=== PATIENT | male | born 1970 | race Caucasian/White ===

== ENCOUNTER 2018-02-14 19:16 | Observation (INO) | payer OTHER, SELFPAY ==
[2018-02-14] VITALS (10 sets, daily range): BP systolic 156–218; BP diastolic 92–111; PULSE 62–77; RESP 16–22; TEMP 36.2–36.6; O2SAT 94–100; BMI 40.7
--- NOTE | 2018-02-14 19:19 | DI.CT.S_ITS ---
PROCEDURE: CT HEAD/BRAIN WO CON INDICATIONS: stroke symptoms TECHNIQUE: Noncontrast 4.5 mm thick angled axial sections acquired from the foramen magnum to the vertex, with coronal and sagittal reformats. For radiation dose reduction, the following was used: automated exposure control, adjustment of mA and/or kV according to patient size. COMPARISON: [facility], CT, HEAD WITHOUT CONTRAST, 04/04/2008, 11:01. FINDINGS: Image quality: Excellent. CSF spaces: Basal cisterns are patent. No extra-axial fluid collections. Ventricles are normal in size and shape. Brain: No midline shift. No intracranial masses or hemorrhage. Robles-white matter interface is normal. Skull and face: Calvarium and visualized facial bones are intact, without suspicious lesions. Sinuses: Visualized sinuses and mastoids are clear. IMPRESSION: No acute intracranial findings. There is high clinical suspicion for acute infarct, MRI of the brain would be helpful to further characterize findings. Dictated by: Nicole Gastelum M.D. on 02/14/2018 at 19:36 Approved by: Nicole Gastelum M.D. on 02/14/2018 at 19:39
--- NOTE | 2018-02-14 19:33 | ED.AMS ---
HPI - Altered Mental Status General Chief Complaint: Altered Mental Status Stated Complaint: thinks having a stroke Time Seen by Provider: 02/14/18 19:19 Source: patient and family Mode of arrival: ambulatory Limitations: no limitations History of Present Illness HPI narrative: 47-year-old nonsmoker presents with his in the chief complaint of stroke-like symptoms which started at about noon. The patient has not felt great all day but since noon or so he has been confused and felt foggy and fuzzy. He had episodes of blurred vision in his right eye only and trouble finding words earlier today. His came home from work at about 5:00 p.m. and found him sitting on the couch acting abnormal. He was quite anxious on arrival and has settled down a bit and symptoms have improved. He denies any numbness, tingling or weakness of his extremities. He denies any recent illness such as fever, chills or head injury. He does not take blood thinners or any blood pressure medications. He is activated as a code stroke and taken directly to CT. MD complaint: altered mental status and confusion Onset (ago): hour(s) Timing confirmed by: spouse Severity: moderate Consistency of symptoms: waxing and waning Associated symptoms: loss of appetite, malaise and weakness Related Data Previous Rx's Medication Instructions Recorded sulfamethoxazole-trimethoprim 1 tab PO BID #20 tab 11/17/16 Allergies Allergy/AdvReac Type Severity Reaction Status Date / Time Irbesartan Allergy Mild HIVES, Uncoded 07/06/17 12:11 SWELLING Review of Systems Review of Systems All systems reviewed & are unremarkable except as noted in HPI and below Constitutional Denies chills, Denies fever(s), Denies lethargy and Denies weakness Eyes Denies change in vision, Denies eye discharge, Denies irritation and Reports loss of vision ENT Ears, Nose, Mouth, and Throat: Denies change in voice, Denies neck pain and Denies sore throat Cardiovascular Denies chest pain, Denies irregular heart rhythm, Reports lightheadedness, Denies palpitations, Denies dyspnea, Denies dyspnea on exertion and Denies orthopnea Respiratory Denies cough, Denies dyspnea, Denies dyspnea on exertion and Denies wheezing Gastrointestinal Gastrointestinal: Denies abdominal pain, Denies change in bowel habits, Denies diarrhea, Denies nausea and Denies vomiting Genitourinary Denies hematuria, Denies flank pain, Denies urinary incontinence and Denies urinary urgency Musculoskeletal Denies neck pain Integumentary/Breasts Denies pruritus, Denies erythema, Denies rash and Denies wounds Neurologic Reports confusion, Reports loss of vision and Denies weakness Psychiatric Reports anxiety, Reports confusion, Denies depression, Denies homicidal ideation and Denies suicidal ideation Endocrine Denies palpitations Hematologic/Lymphatic Denies easy bruising Allergic/Immunologic Denies wheezing Exam Narrative Exam Narrative: GENERAL: This is a well-nourished, well-developed patient, in mild distress. Obviously anxious, a bit confused and slow to respond. Obese HEAD: Atraumatic. Normocephalic. No temporal or scalp tenderness. EYES: Pupils equal round and reactive. Extraocular motions intact. No scleral icterus. No injection or drainage. ENT: Nose without bleeding, purulent drainage or septal hematoma. Throat without erythema, tonsillar hypertrophy or exudate. Uvula midline. Airway patent. NECK: Trachea midline. No JVD or lymphadenopathy. Supple, nontender, no meningeal signs. CARDIOVASCULAR: Regular rate and rhythm without murmurs, gallops, or rubs. RESPIRATORY: Clear to auscultation. Breath sounds equal bilaterally. No wheezes, rales, or rhonchi. GASTROINTESTINAL: Abdomen soft, non-tender, nondistended. No hepato-splenomegaly, or palpable masses. No guarding. EXTREMITIES: No clubbing, cyanosis, or edema. No joint tenderness, effusion, or edema noted. BACK: Nontender without deformity or crepitance. No flank tenderness. SKIN: No rash or erythema. Initial Vital Signs Initial Vital Signs: Vital Signs Temperature 97.8 F 02/14/18 19:20 Pulse Rate 77 02/14/18 19:20 Respiratory Rate 18 02/14/18 19:20 Blood Pressure 218/111 H 02/14/18 19:20 Pulse Oximetry 100 02/14/18 19:20 Scores NIH Stroke Scale Level of Conciousness: Not alert, but arousable by minor stim to obey, answer or respond Ask month/age: Answers one question correctly, intubated follow commands Open/close eyes, close hand: Performs both tasks correctly Best gaze horizontal: Normal Visual lynn: No visual loss Facial palsy: Normal symetrical movement Left arm drift: No drift for full 10 sec Right arm drift: No drift for full 10 sec Left leg drift: No drift for full 10 sec Right leg drift: No drift for full 10 sec Limb ataxia: Absent Sensory on face/arms/legs: Normal, no sensory loss Best language: No aphasia, normal Dysarthria: Normal Extinction or inattention: No abnormality Total NIH Stroke scale score: 2 Course Orders Ordered: ED Orders 02/14/18 19:19 CT head/brain wo con Stat 02/14/18 19:21 Basic Metabolic Panel Stat Complete Blood Count AUTO DIFF Stat Partial Thromboplastin Time Stat Prothrombin Time INR Stat 02/14/18 19:25 Urine Drug Screen, Rapid Stat EKG-12 Lead Stat 02/14/18 21:30 EC echo doppler complete Routine MR stroke Routine US carotid doppler BI Routine Education, smoking cessation ONGOING 02/15/18 05:00 Basic Metabolic Panel DAILY Lipid Panel DAILY Acetaminophen (Tylenol) 650 mg PO Q6HR PRN PRN Reason: As Needed for Fever/Mild Pain Aspirin (Aspirin) 325 mg PO DAILY FLY Sodium Chloride (Normal Saline 0.9%) 1,000 mls @ 150 mls/hr IV CONT FLY Last Admin: 02/14/18 19:49 Dose: 150 mls/hr Labetalol HCl (Trandate) 10 mg IV Q4HR PRN PRN Reason: Heart Rate- High Discontinued Medications Aspirin (Aspirin Chew) 324 mg PO NOW ONE Stop: 02/14/18 20:05 Last Admin: 02/14/18 20:09 Dose: 324 mg Labetalol HCl (Trandate) 10 mg IV NOW ONE Stop: 02/14/18 19:50 Last Admin: 02/14/18 19:50 Dose: 10 mg Reevaluation(s) Reevaluation #1: patient BP dropping after Labetalol. Now down to about 180s/110. Some improvement in symptoms but definitely not full resolution. Consultations Consultation #1: Dr. Campbell happy to admit given patient reported history with Dr. Cai Vital Signs - 8 hr 02/14/18 19:20 02/14/18 19:39 02/14/18 19:50 Temperature 97.8 F Pulse Rate 77 69 63 Respiratory Rate 18 22 Blood Pressure 218/111 H 179/101 H Blood Pressure [Left Arm] 176/108 H Pulse Oximetry 100 100 02/14/18 20:05 02/14/18 20:15 11/20/18 20:30 Temperature Pulse Rate 63 62 64 Respiratory Rate 16 16 16 Blood Pressure Blood Pressure [Left Arm] 169/96 H 158/92 H 163/95 H Pulse Oximetry 98 100 94 02/14/18 20:58 02/14/18 21:10 02/14/18 21:46 Temperature 97.2 F L Pulse Rate 65 66 Respiratory Rate 16 18 Blood Pressure 189/98 H 156/105 H Blood Pressure [Left Arm] Pulse Oximetry 100 97 96 MDM - Altered Mental Status Lab Data Attestation: I reviewed the patient's lab results. Result diagrams: 02/14/18 19:21 02/14/18 19:21 Lab Results 02/14/18 02/14/18 02/14/18 Range/Units 19:21 19:21 19:21 WBC 11.2 H (4.5-11.0) X10^3/uL RBC 5.24 (4.5-5.9) X10^6/uL Hgb 14.9 (13.5-17.5) g/dL Hct 44.4 (41-53) % MCV 84.7 (80-100) fL MCH 28.4 (26-34) PG MCHC 33.6 (30-36) % RDW 13.4 (11.6-14.8) % Plt Count 255 (150-400) X10^3/uL Neut % (Auto) 73.9 (50-75) % Lymph % (Auto) 15.6 L (25-40) % [place] % (Auto) 7.5 (3-14) % Eos % (Auto) 2.2 (2-4) % Baso % (Auto) 0.8 (0-2) % Neut # (Auto) 8300 H (4493-1487) /uL PT 11.4 (10.1-12.7) SECONDS INR 1.0 (0.9-1.3) APTT 31 (26.4-36.2) SECONDS Sodium 142 (137-145) mmol/L Potassium 4.0 (3.4-5.1) mmol/L Chloride 102 (98-107) mmol/L Carbon Dioxide 29 (22-32) mmol/L BUN 19 (9-20) mg/dL Creatinine 1.10 (0.66-1.25) mg/dL Estimated GFR > 60.0 (>60) mL/min BUN/Creatinine Ratio 17.3 (6-22) Glucose 105 H (70-100) mg/dL Calcium 9.2 (8.4-10.2) mg/dL Point of Care Testing Glucose POC [address] scan - head: Radiologist's impression: [address] [address] [address] Scan Report Signed Patient: Alexei Cruz JMR#: [id number] : 1970Acct:[id number] Age/Sex: 47 / MDate of Service: 02/14/18 Loc: ED Accession Number: [id number] Procedure: CT head/brain wo con Ordering Provider: Javier Peng D.O. PROCEDURE: CT HEAD/BRAIN WO CON INDICATIONS: stroke symptoms TECHNIQUE: Noncontrast 4.5 mm thick angled axial sections acquired from the foramen magnum to the vertex, with coronal and sagittal reformats. For radiation dose reduction, the following was used: automated exposure control, adjustment of mA and/or kV according to patient size. COMPARISON: [facility], CT, HEAD WITHOUT CONTRAST, 04/04/2008, 11:01. FINDINGS: Image quality: Excellent. CSF spaces: Basal cisterns are patent. No extra-axial fluid collections. Ventricles are normal in size and shape. Brain: No midline shift. No intracranial masses or hemorrhage. Robles-white matter interface is normal. Skull and face: Calvarium and visualized facial bones are intact, without suspicious lesions. Sinuses: Visualized sinuses and mastoids are clear. IMPRESSION: No acute intracranial findings. There is high clinical suspicion for acute infarct, MRI of the brain would be helpful to further characterize findings. Dictated by: Nicole Gastelum M.D. on 02/14/2018 at 19:36 Approved by: Nicole Gastelum M.D. on 02/14/2018 at 19:39 ECG Data Attestation: I personally reviewed and interpreted this ECG as follows: Prior ECG tracings: not available for review Interpretation: EKG is normal sinus rhythm and free of any signs of ischemia or ectopy. Heart rate 71. No ST segmental elevation or depression. No T-wave inversions MDM Narrative Medical decision making narrative: patient presents as code stroke with confusion, fuzziness, vision trouble which improves with HTN control, but does not resolve. Patient never in TPA window. Stroke considered, but not classic symptoms. HTN crisis considered most likely diagnosis, but fact that symptoms did not completely resolve with improved pressures makes TIA a strong possibility. Patient will require admission to hospital to further elucidate etiology of symptoms Discharge Plan Departure Patient Disposition: Admitted as Observation Clinical Impression: Brain TIA, Hypertensive urgency Discharge Date/Time: 02/14/18 21:00 Interventions: ED Discharge Assessment Last Done: 02/14/18 20:58 Admit Date/Time: 02/14/18 20:40 Admit Provider: Alma Campbell
--- NOTE | 2018-02-14 19:40 | ED_ITS ---
HPI - Altered Mental Status General Chief Complaint: Altered Mental Status Stated Complaint: thinks having a stroke Time Seen by Provider: 02/14/18 19:19 Source: patient and family Mode of arrival: ambulatory Limitations: no limitations History of Present Illness HPI narrative: 47-year-old nonsmoker presents with his in the chief complaint of stroke-like symptoms which started at about noon. The patient has not felt great all day but since noon or so he has been confused and felt foggy and fuzzy. He had episodes of blurred vision in his right eye only and trouble finding words earlier today. His came home from work at about 5:00 p.m. and found him sitting on the couch acting abnormal. He was quite anxious on arrival and has settled down a bit and symptoms have improved. He denies any numbness, tingling or weakness of his extremities. He denies any recent illness such as fever, chills or head injury. He does not take blood thinners or any blood pressure medications. He is activated as a code stroke and taken directly to CT. MD complaint: altered mental status and confusion Onset (ago): hour(s) Timing confirmed by: spouse Severity: moderate Consistency of symptoms: waxing and waning Associated symptoms: loss of appetite, malaise and weakness Related Data Previous Rx's Medication Instructions Recorded sulfamethoxazole-trimethoprim 1 tab PO BID #20 tab 11/17/16 Allergies Allergy/AdvReac Type Severity Reaction Status Date / Time Irbesartan Allergy Mild HIVES, Uncoded 07/06/17 12:11 SWELLING Review of Systems Review of Systems All systems reviewed & are unremarkable except as noted in HPI and below Constitutional Denies chills, Denies fever(s), Denies lethargy and Denies weakness Eyes Denies change in vision, Denies eye discharge, Denies irritation and Reports loss of vision ENT Ears, Nose, Mouth, and Throat: Denies change in voice, Denies neck pain and Denies sore throat Cardiovascular Denies chest pain, Denies irregular heart rhythm, Reports lightheadedness, Denies palpitations, Denies dyspnea, Denies dyspnea on exertion and Denies orthopnea Respiratory Denies cough, Denies dyspnea, Denies dyspnea on exertion and Denies wheezing Gastrointestinal Gastrointestinal: Denies abdominal pain, Denies change in bowel habits, Denies diarrhea, Denies nausea and Denies vomiting Genitourinary Denies hematuria, Denies flank pain, Denies urinary incontinence and Denies urinary urgency Musculoskeletal Denies neck pain Integumentary/Breasts Denies pruritus, Denies erythema, Denies rash and Denies wounds Neurologic Reports confusion, Reports loss of vision and Denies weakness Psychiatric Reports anxiety, Reports confusion, Denies depression, Denies homicidal ideation and Denies suicidal ideation Endocrine Denies palpitations Hematologic/Lymphatic Denies easy bruising Allergic/Immunologic Denies wheezing Exam Narrative Exam Narrative: GENERAL: This is a well-nourished, well-developed patient, in mild distress. Obviously anxious, a bit confused and slow to respond. Obese HEAD: Atraumatic. Normocephalic. No temporal or scalp tenderness. EYES: Pupils equal round and reactive. Extraocular motions intact. No scleral icterus. No injection or drainage. ENT: Nose without bleeding, purulent drainage or septal hematoma. Throat without erythema, tonsillar hypertrophy or exudate. Uvula midline. Airway patent. NECK: Trachea midline. No JVD or lymphadenopathy. Supple, nontender, no meningeal signs. CARDIOVASCULAR: Regular rate and rhythm without murmurs, gallops, or rubs. RESPIRATORY: Clear to auscultation. Breath sounds equal bilaterally. No wheezes , rales, or rhonchi. GASTROINTESTINAL: Abdomen soft, non-tender, nondistended. No hepato-splenomegaly , or palpable masses. No guarding. EXTREMITIES: No clubbing, cyanosis, or edema. No joint tenderness, effusion, or edema noted. BACK: Nontender without deformity or crepitance. No flank tenderness. SKIN: No rash or erythema. Initial Vital Signs Initial Vital Signs: Vital Signs Temperature 97.8 F 02/14/18 19:20 Pulse Rate 77 02/14/18 19:20 Respiratory Rate 18 02/14/18 19:20 Blood Pressure 218/111 H 02/14/18 19:20 Pulse Oximetry 100 02/14/18 19:20 Scores NIH Stroke Scale Level of Conciousness: Not alert, but arousable by minor stim to obey, answer or respond Ask month/age: Answers one question correctly, intubated follow commands Open/close eyes, close hand: Performs both tasks correctly Best gaze horizontal: Normal Visual lynn: No visual loss Facial palsy: Normal symetrical movement Left arm drift: No drift for full 10 sec Right arm drift: No drift for full 10 sec Left leg drift: No drift for full 10 sec Right leg drift: No drift for full 10 sec Limb ataxia: Absent Sensory on face/arms/legs: Normal, no sensory loss Best language: No aphasia, normal Dysarthria: Normal Extinction or inattention: No abnormality Total NIH Stroke scale score: 2 Course Orders Ordered: ED Orders 02/14/18 19:19 CT head/brain wo con Stat 02/14/18 19:21 Basic Metabolic Panel Stat Complete Blood Count AUTO DIFF Stat Partial Thromboplastin Time Stat Prothrombin Time INR Stat 02/14/18 19:25 Urine Drug Screen, Rapid Stat EKG-12 Lead Stat 02/14/18 21:30 EC echo doppler complete Routine MR stroke Routine US carotid doppler BI Routine Education, smoking cessation ONGOING 02/15/18 05:00 Basic Metabolic Panel DAILY Lipid Panel DAILY Acetaminophen (Tylenol) 650 mg PO Q6HR PRN PRN Reason: As Needed for Fever/Mild Pain Aspirin (Aspirin) 325 mg PO DAILY FLY Sodium Chloride (Normal Saline 0.9%) 1,000 mls @ 150 mls/hr IV CONT FLY Last Admin: 02/14/18 19:49 Dose: 150 mls/hr Labetalol HCl (Trandate) 10 mg IV Q4HR PRN PRN Reason: Heart Rate- High Discontinued Medications Aspirin (Aspirin Chew) 324 mg PO NOW ONE Stop: 02/14/18 20:05 Last Admin: 02/14/18 20:09 Dose: 324 mg Labetalol HCl (Trandate) 10 mg IV NOW ONE Stop: 02/14/18 19:50 Last Admin: 02/14/18 19:50 Dose: 10 mg Reevaluation(s) Reevaluation #1: patient BP dropping after Labetalol. Now down to about 180s/ 110. Some improvement in symptoms but definitely not full resolution. Consultations Consultation #1: Dr. Campbell happy to admit given patient reported history with Dr. Cai Vital Signs - 8 hr 02/14/18 19:20 02/14/18 19:39 02/14/18 19:50 Temperature 97.8 F Pulse Rate 77 69 63 Respiratory Rate 18 22 Blood Pressure 218/111 H 179/101 H Blood Pressure [Left Arm] 176/108 H Pulse Oximetry 100 100 02/14/18 20:05 02/14/18 20:15 11/20/18 20:30 Temperature Pulse Rate 63 62 64 Respiratory Rate 16 16 16 Blood Pressure Blood Pressure [Left Arm] 169/96 H 158/92 H 163/95 H Pulse Oximetry 98 100 94 02/14/18 20:58 02/14/18 21:10 02/14/18 21:46 Temperature 97.2 F L Pulse Rate 65 66 Respiratory Rate 16 18 Blood Pressure 189/98 H 156/105 H Blood Pressure [Left Arm] Pulse Oximetry 100 97 96 MDM - Altered Mental Status Lab Data Attestation: I reviewed the patient's lab results. Result diagrams: 02/14/18 19:21 02/14/18 19:21 Lab Results 02/14/18 02/14/18 02/14/18 Range/Units 19:21 19:21 19:21 WBC 11.2 H (4.5-11.0) X10^3/uL RBC 5.24 (4.5-5.9) X10^6/uL Hgb 14.9 (13.5-17.5) g/dL Hct 44.4 (41-53) % MCV 84.7 (80-100) fL MCH 28.4 (26-34) PG MCHC 33.6 (30-36) % RDW 13.4 (11.6-14.8) % Plt Count 255 (150-400) X10^3/uL Neut % (Auto) 73.9 (50-75) % Lymph % (Auto) 15.6 L (25-40) % [place] % (Auto) 7.5 (3-14) % Eos % (Auto) 2.2 (2-4) % Baso % (Auto) 0.8 (0-2) % Neut # (Auto) 8300 H (8860-1184) /uL PT 11.4 (10.1-12.7) SECONDS INR 1.0 (0.9-1.3) APTT 31 (26.4-36.2) SECONDS Sodium 142 (137-145) mmol/L Potassium 4.0 (3.4-5.1) mmol/L Chloride 102 (98-107) mmol/L Carbon Dioxide 29 (22-32) mmol/L BUN 19 (9-20) mg/dL Creatinine 1.10 (0.66-1.25) mg/dL Estimated GFR > 60.0 (>60) mL/min BUN/Creatinine Ratio 17.3 (6-22) Glucose 105 H (70-100) mg/dL Calcium 9.2 (8.4-10.2) mg/dL Point of Care Testing Glucose POC [address] scan - head: Radiologist's impression: [address] [address] [address] Scan Report Signed Patient: Alexei Cruz JMR#: [id number] : 1970Acct:[id number] Age/Sex: 47 / MDate of Service: 02/14/18 Loc: ED Accession Number: [id number] Procedure: CT head/brain wo con Ordering Provider: Javier Peng D.O. PROCEDURE: CT HEAD/BRAIN WO CON INDICATIONS: stroke symptoms TECHNIQUE: Noncontrast 4.5 mm thick angled axial sections acquired from the foramen magnum to the vertex, with coronal and sagittal reformats. For radiation dose reduction, the following was used: automated exposure control, adjustment of mA and/or kV according to patient size. COMPARISON: [facility], CT, HEAD WITHOUT CONTRAST, 04/04/2008, 11:01. FINDINGS: Image quality: Excellent. CSF spaces: Basal cisterns are patent. No extra-axial fluid collections. Ventricles are normal in size and shape. Brain: No midline shift. No intracranial masses or hemorrhage. Robles-white matter interface is normal. Skull and face: Calvarium and visualized facial bones are intact, without suspicious lesions. Sinuses: Visualized sinuses and mastoids are clear. IMPRESSION: No acute intracranial findings. There is high clinical suspicion for acute infarct, MRI of the brain would be helpful to further characterize findings. Dictated by: Nicole Gastelum M.D. on 02/14/2018 at 19:36 Approved by: Nicole Gastelum M.D. on 02/14/2018 at 19:39 ECG Data Attestation: I personally reviewed and interpreted this ECG as follows: Prior ECG tracings: not available for review Interpretation: EKG is normal sinus rhythm and free of any signs of ischemia or ectopy. Heart rate 71. No ST segmental elevation or depression. No T-wave inversions MDM Narrative Medical decision making narrative: patient presents as code stroke with confusion, fuzziness, vision trouble which improves with HTN control, but does not resolve. Patient never in TPA window. Stroke considered, but not classic symptoms. HTN crisis considered most likely diagnosis, but fact that symptoms did not completely resolve with improved pressures makes TIA a strong possibility. Patient will require admission to hospital to further elucidate etiology of symptoms Discharge Plan Departure Patient Disposition: Admitted as Observation Clinical Impression: Brain TIA, Hypertensive urgency Discharge Date/Time: 02/14/18 21:00 Interventions: ED Discharge Assessment Last Done: 02/14/18 20:58 Admit Date/Time: 02/14/18 20:40 Admit Provider: Alma Campbell
[2018-02-14 19:45] LABS: Prothrombin Time 11.4 SECONDS (10.1-12.7)
[2018-02-14 19:47] LABS: PTT Partial Thromboplastin Tim 31 SECONDS (26.4-36.2)
[2018-02-14 19:48] LABS: BUN Creatinine Ratio 17.3 (6-22); Blood Urea Nitrogen 19 mg/dL (9-20); Calcium 9.2 mg/dL (8.4-10.2); Carbon Dioxide 29 mmol/L (22-32); Chloride 102 mmol/L (98-107); Estimated Glomerular Filt Rate > 60.0 mL/min (>60); Glucose 105 mg/dL (70-100); HEMOLYSIS < 15 (0-50); Sodium 142 mmol/L (137-145)
[2018-02-14] MEDS: SODIUM CHLORIDE 0.9% 1,000 ML 150 ML IV (19:49)
[2018-02-14] MEDS: LABETALOL 20 MG/4 ML SYRINGE 10 MG IV (19:50)
--- NOTE | 2018-02-14 19:55 | PC.NURSE ---
Patient reports sitting at his desk around 1330/1400 sudden onset of right sided blurry vision, pins/needles on right side of face. Took a nap woke up around 1630 feeling disoriented and having difficulty formulating a thought. Arrives to ER appears anxious I am freaking out, am I having a stroke patient is repetitive in questions and statements.
[2018-02-14 20:01] LABS: Add Manual Diff / Slide Review NO; Basophils Percent Auto 0.8 % (0-2); Eosinophils Percent Auto 2.2 % (2-4); Hematocrit 44.4 % (41-53); Hemoglobin 14.9 g/dL (13.5-17.5); Lymphocytes Percent Auto 15.6 % (25-40); Mean Corpuscular HGB Conc 33.6 % (30-36); Mean Corpuscular Hemoglobin 28.4 PG (26-34); Mean Corpuscular Volume 84.7 fL (80-100); Monocytes Percent Auto 7.5 % (3-14); Neutrophils Absolute Auto 8300 /uL (3000-5900); Neutrophils Percent Auto 73.9 % (50-75); Platelet Count 255 X10^3/uL (150-400); Red Blood Cell Count 5.24 X10^6/uL (4.5-5.9); Red Cell Distribution Width 13.4 % (11.6-14.8); White Blood Cell Count 11.2 X10^3/uL (4.5-11.0)
[2018-02-14] MEDS: ASPIRIN 81 MG TAB 324 MG PO (20:09)
--- NOTE | 2018-02-14 21:30 | DI.ECHO.S_ITS ---
[facility] +---------+ : : [address] : : [address] : : : : [place], : : : : [place] [id number] : : : : Phone: [phone] + [id number] Echocardiogram Report + + :Name: SAVITA FRANKS Study Date: 02/15/2018 Height: 68 in : :[facility] Weight: 274 lb: : Gender: Male BSA: 2.3 m2 : :: 1970 Age: 47 yrs : :Reason For Study: TIA : : Performed By: Lisa Pastor : :Referring: JOSHUA RAMSEY : + + Interpretation Summary The patient was in normal sinus rhythm during the exam. The left ventricle is normal in size. The ejection fraction is estimated to be 60-65%. There is no LV thrombus. The right ventricle is normal in size and function. No significant valvular pathology seen. The ascending aorta is moderately enlarged. The aortic arch is mildly enlarged. Procedure: A two-dimensional transthoracic echocardiogram with color flow and Doppler was performed. The study quality was technically adequate. There is no prior echocardiogram noted for this patient. The heart rate ranged between 61-72 bpm during the study. The patient was in normal sinus rhythm during the exam. Left Ventricle: The left ventricle is normal in size. Proximal septal thickening is noted. There is no echo evidence for significant left ventricular outflow tract obstruction. There is no thrombus. The ejection fraction is estimated to be 60-65%. There are no focal wall motion abnormalities. MV E/A: 0.94 Med Peak E' Hany: 4.9 cm/sec E/E' med: 18.6. Right Ventricle: The right ventricle is normal in size and function. Atria: Both atria are normal in size. There is no Doppler evidence for an interatrial shunt. Mitral Valve: The mitral valve is normal in structure and function. There is trace mitral regurgitation. Aortic Valve: The aortic valve is not well visualized. There is no aortic valve stenosis. No aortic regurgitation is present. Tricuspid Valve: The tricuspid valve is not well visualized, but is grossly normal. Pulmonary artery pressures cannot be estimated because of the lack of a measurable TR jet velocity. There is trace tricuspid regurgitation. Pulmonic Valve: The pulmonic valve is not well seen, but is grossly normal. There is a trace or physiologic amount of pulmonic regurgitation. Great Vessels: The aortic root is normal size. The ascending aorta is moderately enlarged. The aortic arch is mildly enlarged. The pulmonary artery is normal size. The IVC is dilated (diameter is greater than 2.1 cm) yet it collapses greater than 50% with a sniff. This suggests a right atrial pressure of 8 mm Hg. Pericardium/ Pleura There is no pericardial effusion. There is an anterior echo-free space consistent with a fat pad. There is no pleural effusion. MMode/2D Measurements & Calculations LVIDd: 4.5 cm LVOT diam: 2.3 cm LVIDs: 2.6 cm Ao root diam: 3.4 cm IVSd: 1.2 cm asc Aorta Diam: 4.4 cm LVPWd: 1.1 cm Ao Arch Diam (Prox Trans): 3.6 cm LV monique. diameter/BSA (cm/m^2): 1.9 LV sys. diameter/BSA (cm/m^2): 1.1 FS: 42.5 % LA A2 area: 19.9 cm2 RA long axis: 4.7 cm LA A4 area: 22.9 cm2 RA area: 11.5 cm2 LA length (vol): 5.8 cm RA vol: 23.7 ml LA vol: 67.1 ml RA : 10.1 ml/m2 LA vol index: 28.7 ml/m2 RVD1 (basal): 2.9 cm IVC diam: 2.3 cm TAPSE: 2.8 cm Doppler Measurements & Calculations Ao V2 max: 157.6 cm/sec LVOT Max Hany: 125.6 cm/sec Ao V2 mean: 109.6 cm/sec LV V1 max P.3 mmHg Ao V2 VTI: 33.4 cm LV V1 VTI: 30.8 cm Ao max P.9 mmHg Ao mean P.4 mmHg XIAO(I,D): 4.0 cm2 MV E max hany: 92.2 cm/sec XIAO(V,D): 3.5 cm2 MV A max hany: 98.5 cm/sec XIAO indexed to BSA (cm^2/m^2): 1.7 MV E/A: 0.94 sev ratio: 0.92 Med Peak E' Hany: 4.9 cm/sec E/E' med: 18.6 Lat Peak E' Hany: 4.9 cm/sec E/E' lat: 18.6 E/e' average: 18.6 MV dec time: 0.25 sec Reading Physician:ISH
--- NOTE | 2018-02-14 21:30 | DI.MRI.S_ITS ---
PROCEDURE: MR STROKE Pre- and post-contrast brain MRI, non-contrast brain MR angiogram, pre- and postcontrast neck MR angiogram INDICATIONS: TIA TECHNIQUE: Brain: Noncontrast axial T1 spin echo, axial T2 fast spin echo, sagittal and axial FLAIR, coronal T2 fast spin echo, axial gradient echo, axial diffusion and ADC through the brain. After the administration of contrast, axial 3D VIBE of the cranial vasculature and brain. Brain MRA: Non-contrast 3-D time of flight MR angiogram, with multiple cbsismw-qatpvyzwo-wbhnnvlhry (MIP) reformats performed. Neck MRA: Axial and sagittal TruFISP through the neck. Coronal dynamic MR angiogram during administration of contrast in the arterial and venous phases, with 3-dimenstional kzoxefz-bkgzwflkr-hxnzwvhrjr (MIP) reformats constructed from subtraction images. COMPARISON: None. FINDINGS: Image quality: Excellent. BRAIN: CSF spaces: Ventricles are normal in size and shape. Basal cisterns are patent. No extra-axial fluid collections. Brain: No intracranial bleeds or mass effects. There are scattered white matter signal changes most prominently involving the left aspect of the splenium adjacent to the occipital horn on image 13 series 16. There additional periventricular white matter signal changes in this region. No definite associated enhancement identified on post contrast pulse sequences suggesting nonacute age. Robles-white matter interface is normal. Diffusion weighted images show no acute ischemic insults. There is T2 hyperintensity seen on image 66 series 25 in the region of the right periventricular white matter, as well as the periventricular white matter adjacent to the left occipital horn, however this probably T2 shine through artifact given the appearance of ADC map. Brainstem appears normal. Normal intravascular flow voids are present. No abnormal intracranial enhancement. Skull and face: Calvarial marrow signal is normal. Orbits appear normal. Sinuses: Mild bilateral maxillary sinus disease. The mastoids are clear. BRAIN MR ANGIOGRAM: Anterior circulation: Intracranial internal carotid arteries are normal in size and enhancement. The flow within the paired anterior cerebral arteries is normal and symmetric. The flow within the middle cerebral arteries is normal and symmetric. The anterior communicating artery is seen. No stenoses, occlusions, or aneurysms. Posterior circulation: The visualized portions of the vertebral arteries demonstrate normal caliber, and join to form a incidentally noted fenestrated basilar artery. 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 NECK MR ANGIOGRAM: Carotids: Great vessels demonstrate a conventional anatomy as they arise from the aortic arch. The origins of the common carotid arteries appear patent. The calibers and courses of both common carotid arteries are normal. The bifurcation regions appear normal bilaterally. The internal carotid arteries demonstrate normal course and caliber. Posterior circulation: The origins of the vertebral arteries appear patent. More superior portions of both vertebral arteries demonstrate normal course and caliber. Incidentally noted fenestrated appearance of the basilar artery. Miscellaneous: Subclavian arteries appear patent. Pre-contrast images through the neck show no soft tissue abnormalities. IMPRESSION: BRAIN MRI: No evidence of acute ischemia. Diffuse white matter signal changes most prominent at the left aspect of the corpus callosum splenium, raising the possibility of demyelination (versus chronic microvascular ischemic disease, or other inflammatory or neurodegenerative etiology). No associated enhancement suggests that these are nonacute. Recommend clinical correlation. 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 NECK MR ANGIOGRAM: No ICA stenosis. Dictated by: Usama Villalta M.D. on 02/15/2018 at 11:52 Approved by: Usama Villalta M.D. on 02/15/2018 at 12:08
[2018-02-15] VITALS (11 sets, daily range): BP systolic 146–184; BP diastolic 78–116; PULSE 58–67; RESP 16–22; TEMP 36.4–36.9; O2SAT 94–100
[2018-02-15] MEDS: LABETALOL 20 MG/4 ML SYRINGE 10 MG IV (06:56)
--- NOTE | 2018-02-15 07:01 | PM.HP.1 ---
History of Present Illness Date Patient Seen: 02/15/18 Time Patient Seen: 08:20 Chief complaint: thinks having a stroke Narrative: 47-year-old morbidly obese male whom I have seen a handful of times over 10 years (usually only for acute care issues) who presented to the [facility] Emergency Department with symptoms possibly consistent with a stroke. Symptoms apparently began in early afternoon day of admission. He felt ?confused?, ?foggy and fuzzy?. He also reports episodes of difficulty finding words and perhaps some blurred vision. His spouse came home from work in the early evening found him sitting on the couch acting abnormally and strangely and he was extremely anxious apparently. Many of his symptoms seemed to wax and wane and/or common go over the course of the see describes a just a few seconds less than a minute. Upon arrival in the ED a code stroke was called and he was evaluated urgently. Other than severe hypertension no specific findings in his ER evaluation Past medical history is fairly benign other than his obesity and sleep apnea. On no chronic prescription medications. Has not received any regular medical care as above. Patient History Medical History Sleep apnea in adult (Chronic) Obesity, morbid, BMI 40.0-49.9 (Chronic) Hypertension (Chronic) Family & Social History Family History: Reviewed 02/15/18 by Ernesto Cai MD Social History: household members spouse Prior Living Arrangements House Safety & Behavioral: Feels Safe in Current Yes Environment Been Physically Hurt or No Threatened By a Person Suicidal Ideation Description None Suicide Plan Description No Plan Tobacco & Substance use: Smoking Status Former smoker alcohol intake frequency a few times a week Substance Use Type does not use Meds Allergies Allergy/AdvReac Type Severity Reaction Status Date / Time Irbesartan Allergy Mild HIVES, Uncoded 07/06/17 12:11 SWELLING Review of Systems Constitutional Constitutional: Denies fever(s), Denies headache(s), Denies malaise and Denies weakness Eyes Eyes: Denies double vision, Denies irritation, Denies loss of vision and Denies other visual disturbances ENT Ears, Nose, Mouth, and Throat: No headache(s) Cardiovascular Cardiovascular: Denies irregular heart rhythm, Denies radiating jaw, neck or arm pain, Denies rapid, pounding, or irregular heartbeat, Denies shortness of breath and Denies shortness of breath with activity Respiratory Respiratory: Denies dyspnea, Denies dyspnea on exertion and Denies wheezing Gastrointestinal Gastrointestinal: Denies change in bowel habits and Denies nausea Genitourinary Genitourinary: Denies urinary urgency Musculoskeletal Musculoskeletal: Denies myalgias, Denies joint swelling, Denies numbness and Denies tingling Integumentary/Breasts Skin/Breast: Denies lesions, Denies new lesions, Denies rash and Denies sores Neurologic Neurologic: Denies headache(s), Denies loss of vision, Denies memory loss, Denies numbness, Denies tingling and Denies weakness Psychiatric Psychiatric: Denies memory loss Endocrine Endocrine: Denies palpitations Hematologic/Lymphatic Hematologic/Lymphatic: Denies lymphadenopathy Allergic/Immunologic Allergic/Immunologic: Denies wheezing Exam Vital Signs (past 8 hours): - 02/15/18 01:20 02/15/18 06:20 02/15/18 06:50 Temperature 97.5 F L 97.5 F L Pulse Rate 60 Respiratory Rate 19 22 Blood Pressure 155/98 H 184/116 H Pulse Oximetry 98 100 02/15/18 06:56 Temperature Pulse Rate 64 Respiratory Rate Blood Pressure 184/116 H Pulse Oximetry Oxygen Delivery Method Room Air Const General: cooperative, healthy appearing, comfortable, well developed and well groomed Nutritional Appearance: well nourished Orientation: alert, awake and oriented x3 HENMT Head: normocephalic, atraumatic, No cyanosis of lips/distal nose, No raccoon eyes and No periorbital ecchymosis Ears: hearing grossly normal bilaterally and external ears normal Nose: external nose normal and nares normal Face and sinus: normal facial exam and face symmetric Mouth: oral mucosae normal, lip normal and tongue normal Eyes Alignment and Position: alignment normal Periorbital: periorbital findings normal Eyelids: eyelids normal Conjunctivae: conjunctivae normal Sclera: sclerae normal Cornea: corneas normal Pupils: PERRL EOM: EOM intact bilaterally Neck Neck: normal visual inspection, full ROM, trachea midline and No anterior neck swelling Thyroid: not diffusely enlarged Carotids: normal carotid upstroke Lymphatic: No lymphadenopathy Chest Chest: normal inspection of the chest, No crepitus and No tenderness Breast inspection: normal inspection of the breasts Resp Effort & Inspection: normal respiratory effort, able to speak in complete sentences, no audible wheezes, no cough, no retractions and not tachypneic Auscultation: clear to auscultation bilaterally, no rales, no rhonchi, no wheezes and no rubs Percussion: percussion normal Tactile Fremitus: tactile fremitus absent Cardio Palpation: normal PMI Rate: regular rate Rhythm: regular rhythm Heart Sounds: S1 normal, S2 normal and normal, physiologic split S2 Bruits: no carotid bruits Pulses: brachial pulses present and radial pulses present GI Inspection: normal to inspection Palpation: soft and no hepatosplenomegaly Percussion: normal to percussion Auscultation: normal bowel sounds Back/Spine/Pelvis Back: No CVA tenderness Cervical Spine: normal cervical lordosis Thoracic/Lumbar Spine: thoracic and lumbar spine normal to inspection Skin General: no rashes or lesions noted, No excoriations, No induration, No jaundice, No mottling and No petechiae Lesions: no lesions (no worrisome/abl lesions) Rashes: no rashes Trauma: no lacerations or abrasions Wounds: no wounds Hair: normal Neuro General: alert, awake, oriented x3, tone normal and normal light touch, pain and propioception Cranial Nerves: CN's II-XI intact bilaterally Cognition: normal cognition Speech: speech normal Motor: muscle tone normal throughout Sensory Exam: no sensory deficits noted DTR's: Rt Biceps: 2+, Lt Biceps: 2+, Rt Brachioradialis: 2+, Lt Brachioradialis: 2+, Rt Patellar: 2+ and Lt Patellar: 2+ Extrem General: normal to inspection, no clubbing, cyanosis or edema and No calf tenderness Right upper extremity: normal to inspection Left upper extremity: normal to inspection Right lower extremity: normal to inspection Left lower extremity: normal to inspection Psych Appearance: grossly normal Mental Status: mental status grossly normal Speech and Movement: speech and movement normal and speech clear Mood: congruent mood Affect: normal affect Attitude: cooperative Thought Process: normal Thought Content: normal Judgment: judgment good Objective Imaging CT scan - head: Radiologist's impression: IMPRESSION: No acute intracranial findings. There is high clinical suspicion for acute infarct, MRI of the brain would be helpful to further characterize findings. EC lead ECG is sinus rhythm with only abnormality being poor R-wave progression across the precordium, no prior study was available in the system to compare Labs Result Diagrams: 02/14/18 19:21 02/15/18 05:00 Labs: Laboratory Results - last 24 hr 02/14/1818 02/14/18 19:21 19:21 19:21 WBC 11.2 H RBC 5.24 Hgb 14.9 Hct 44.4 MCV 84.7 MCH 28.4 MCHC 33.6 RDW 13.4 Plt Count 255 Neut % (Auto) 73.9 Lymph % (Auto) 15.6 L [place] % (Auto) 7.5 Eos % (Auto) 2.2 Baso % (Auto) 0.8 Neut # (Auto) 8300 H PT 11.4 INR 1.0 APTT 31 Sodium 142 Potassium 4.0 Chloride 102 Carbon Dioxide 29 BUN 19 Creatinine 1.10 Estimated GFR > 60.0 BUN/Creatinine Ratio 17.3 Glucose 105 H Calcium 9.2 Assessment & Plan Plan: Assessment/Plan Narrative: 1. Altered mental status/metabolic encephalopathy of unclear etiology-this certainly could be a hypertensive emergency, and as such we I think should control his blood pressure carefully. 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 His symptoms seem to went on and off at far to greater frequency for me to really think this was vascular mediated which is why think it is okay to control blood pressure (I do not think he has had a stroke). However MRI of the brain is certainly an entirely appropriate and will obtain that today. Evaluating his other vasculature including carotids and hopefully an echocardiogram would be appropriate as well. He would I think at this point until we know more or his history is better clinically defined he should probably benefit from an aspirin today as well. I am not calling this a stroke noted why think this is a stroke so I do not think skilled therapy evaluation such as physical therapy etc would be appropriate. 2. Morbid obesity-patient reports he has been working on weight loss through weight watchers and has had some success. He is encouraged to continue this in congratulated on his success today. 3. DVT prophylaxis-continue with sequential compression devices while patient is in bed. Patient will be up and around actively, but if that changes he would be a candidate for Lovenox. Quality VTE Deep Vein Thrombosis/Pulmonary Embolism Present on Admission: No
[2018-02-15 07:07] LABS: Blood Urea Nitrogen 19 mg/dL (9-20); Calcium 8.6 mg/dL (8.4-10.2); Carbon Dioxide 28 mmol/L (22-32); Chloride 106 mmol/L (98-107); Cholesterol 174 mg/dL (140-199); Estimated Glomerular Filt Rate > 60.0 mL/min (>60); Glucose 102 mg/dL (70-100); HDL Cholesterol 37 mg/dL (40-60); HEMOLYSIS < 15 (0-50); LDL Cholesterol Calculated 113 mg/dL (<100); Potassium 4.3 mmol/L (3.4-5.1); Sodium 144 mmol/L (137-145); Triglycerides 122 mg/dL (35-150)
[2018-02-15 07:34] LABS: Urine Amphetamines Negative (Negative); Urine Cocaine Negative (Negative); Urine Methamphetamines Negative (Negative); Urine Morphine/Opi cutoff 2000 Negative (Negative); Urine Tetrahydrocannabinol Negative (Negative)
[2018-02-15 07:35] LABS: Urine Barbiturates Negative (Negative); Urine Benzodiazepines Negative (Negative); Urine MDMA Negative (Negative); Urine Methadone Negative (Negative); Urine Oxycodone Negative (Negative); Urine Phencyclidine Negative (Negative); Urine Tricyclic Antidepressant Negative (Negative)
[2018-02-15] MEDS: LISINOPRIL 20 MG TABLET PO (09:25)
[2018-02-15] MEDS: ASPIRIN EC 325 MG TABLET PO (09:26)
--- NOTE | 2018-02-15 10:25 | PC.NURSE ---
Addendum entered by Roya Childers R.N. 02/15/18 11:35: Pt returned to floor 1130am, Per [employer] tech, Pt had an episode of dizziness after activity to BR. Resolved with rest. blood bank laboratory technician met Pt in room and will begin study Original Note: Am shift Pt is cooperative, sitting in chair, denies pain to chest or confusion, although Pt is noted to be forgetful. Catching himself, Oh you have been in here this morning, I remember now A/ox3, at bedside. Dr Cai into see Pt, MRI of brain scheduled for later this Am, IV SL. Pt denies further needs. Off floor to MRI @ 1030.
--- NOTE | 2018-02-15 11:25 | DI.US.S_ITS ---
PROCEDURE: US CAROTID DOPPLER BI INDICATIONS: TIA TECHNIQUE: Color and pulse Doppler interrogation was performed of both carotid systems, with image documentation and velocity measurements. COMPARISON: None. FINDINGS: Stenosis calculations are based on SRU (Society of Radiologists in Ultrasound) criteria. Right side: Brachial blood pressure: IV in place. Common carotid artery peak systolic velocity: 62 cm/sec. Internal carotid artery peak systolic velocity: 62 cm/sec. Internal carotid artery end diastolic velocity: 19 cm/sec. External carotid artery peak systolic velocity: 111 cm/sec. ICA/CCA peak systolic ratio: 1.0. Robles scale imaging description: No plaque Percent internal carotid artery stenosis: None. Vertebral artery: Flow direction is antegrade. Left side: Brachial blood pressure: 146/88 mm Hg. Common carotid artery peak systolic velocity: 62 cm/sec. Internal carotid artery peak systolic velocity: 51 cm/sec. Internal carotid artery end diastolic velocity: 17 cm/sec. External carotid artery peak systolic velocity: 78 cm/sec. ICA/CCA peak systolic ratio: 0.82. Robles scale imaging description: No plaque Percent internal carotid artery stenosis: None. Vertebral artery: Flow direction is antegrade. IMPRESSION: No evidence of focal ICA stenosis. Hypertension at the time of the exam Dictated by: Usama Villalta M.D. on 02/15/2018 at 15:38 Approved by: Usama Villalta M.D. on 02/15/2018 at 15:40
--- NOTE | 2018-02-15 15:50 | CM.DANOTE ---
Addendum entered by Maria Luisa Oneill LPN 02/15/18 15:58: Pt is found up, dressed and sitting on window seat with his . Introduced self and role. Both stated immediately when can he go. Pt says he had the MRI today, he is very hopeful that he can go home today but has no idea if Dr. Cai is returning today. P: will follow prn. Expect pt likely will d/c home either later this evening or tomorrow..... Original Note: Discharge Planning/Care Management DCP: assessment: case received, EMR reviewed and went to room to check in with pt. CM Discharge Assessment Start: 02/15/18 15:49 Freq: Status: Active Protocol: Document 02/15/18 15:49 ITV (Rec: 02/15/18 15:50 ITV [id number]) Discharge Planning Assessment History Provided By Patient Medical Record Has Patient been admitted in last 30 No days? Prior Living Arrangements House Household Members spouse Whiteboard Updated in Patient Room with Yes name and ext. # of Plastic Tile Layer Review Status In Process Next Review Type Continued Stay Review
== END 2018-02-15 19:52 | disposition home or self-care (01) ==
LOC: ED 20:05 → AC 20:42
PROVIDERS: Admitting Provider Family Medicine; Emergency Provider Emergency Medicine; Family Provider Internal Medicine; PCP Internal Medicine; Visit Provider Internal Medicine
DX: G93.41 Metabolic encephalopathy (principal); R41.82 Altered mental status, unspecified; G47.33 Obstructive sleep apnea (adult) (pediatric); E66.9 Obesity, unspecified; I10 Essential (primary) hypertension; Z68.41 Body mass index [BMI] 40.0-44.9, adult; Z87.891 Personal history of nicotine dependence
CPT/HCPCS: 36415; 36591; 70450; 70553; 80048; 80061; 80305; 82962; 85025; 85610; 85730; 93005; 93010; 93306; 93880; 96361; 96374; 99219; 99283; 99285; 99291; G0378; A9579

== ENCOUNTER → 2019-07-09 12:04 | Outpatient (CLI) | payer OTHER, SELFPAY ==
[2018-02-14 21:40] VITALS: BMI 40.7
[2019-07-09 13:12] LABS: Alanine Aminotransferase 29 IU/L (<50); Albumin 4.5 g/dL (3.5-5.0); Albumin Globulin Ratio 1.4 (1.0-2.8); Alkaline Phosphatase 58 U/L (38-126); Aspartate Aminotransferase 29 IU/L (17-59); BUN Creatinine Ratio 14.8 (6-22); Bilirubin Total 0.6 mg/dL (0.2-1.3); Blood Urea Nitrogen 17 mg/dL (9-20); Calcium 9.1 mg/dL (8.4-10.2); Carbon Dioxide 27 mmol/L (22-32); Chloride 103 mmol/L (98-107); Estimated Glomerular Filt Rate > 60.0 mL/min (>60); Globulin 3.2 g/dL (1.7-4.1); Glucose 128 mg/dL (70-100); HEMOLYSIS < 15 (0-50); Potassium 3.8 mmol/L (3.4-5.1); Sodium 139 mmol/L (137-145); Total Protein 7.7 g/dL (6.3-8.2)
== END ==
PROVIDERS: Family Provider Internal Medicine; PCP Internal Medicine; Referring Provider Internal Medicine; Visit Provider Internal Medicine
DX: E78.5 Hyperlipidemia, unspecified (principal); I10 Essential (primary) hypertension
CPT/HCPCS: 36415; 80053

== ENCOUNTER → 2019-09-14 12:45 | Outpatient (CLI) | payer OTHER, SELFPAY ==
[2018-02-14 21:40] VITALS: BMI 40.7
--- NOTE | 2019-09-14 14:50 | DIET.PN ---
Addendum entered by Marleni Cotter 09/14/19 15:12: Pt curious what his Vit D levels are as he does not supplement, [facility] pt get Vit D checked as well as testosterone as it was low 4y ago. Original Note: Dietary Progress Note Assessment: 49y M here for help with sustainable weight loss and blood sugar control as pt has pre-DM and morbid obesity. Pt started gaining excess weight in mid-20s and has slow sustained weight gain since then now at 301# despite efforts for weight loss with calorie control diets and Weight Watchers. Pt lives c and three children in [place]. They shop for food looking for good deals but already make some good substitutions like ground turkey instead of beef. Pt inquiring about weight loss surgery vs other methods to reverse pre-DM and lower BMI by 10 points. Pt contracts with [employer] doing [employer] so spends some time working from home and also on site in [facility]. Pt sleeps well getting 8-9h/d using well-fitting CPAP machine. Pt wakes at 730am daily and drinks black coffee. 4/7 days he skips breakfast but when he does have something is half bagel c butter or eggs c hernandez bits. Pt often skips lunch then starts snacking which does not stop until he goes to bed. 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 Pt often grabs lunch at [employer] or [employer], often waiting too long to eat and overeating. Pt drinks water and no sugar, no calorie fizzy water HT: 5'9 WT: 301# BMI: 44.4 Labs: FBG 128 H, LDL 113 H, HDL 37 L, testosterone 233 L Nutrition Diagnosis: 1. altered nutrition related laboratory values r/t endocrine disfunction aeb FBG 128 which is increased over past 4 years. 2. morbid obesity r/t undesirable food choices aeb pt overeating protein and high carb foods and under eating fruits, veggies, and healthy fats leading to slow, but steady weight increase over past 25y. Interventions: 1. Discussed Healthy Plate proportions and compared pt's usual intake to the ideal pattern. Pt's intake is skewed towards high carb, high kcal grains, starchy veg, and protein, with F/V and healthy fats under-represented. Challenged pt to start problem solving his meals to match healthy plate proportions to balance nutrients and naturally reduce kcals. 2. Discussed Hunger Scale, to ideally eat at 3 and stop at 7. Pt endorses regularly waiting until a 1 and eating until a 9. Pt will use hunger scale to get in touch with his hunger and fullness to avoid eating fast and overeating kcals. 3. Discussed role of physical activity in weight loss and maintenance. [place] in driving to [place] to walk laps daily. Pt is deconditioned so will need to stop to rest frequently. Stressed importance of walking longer periods of time at slower pace to burn fat. Monitoring/Evaluations: F/U scheduled for 2w to assess progress and problem solve barriers, cover healthy fats, good food substitutions, physical activity, consider insulin labs if weight loss not progressing
== END ==
PROVIDERS: Family Provider Internal Medicine; PCP Internal Medicine; Referring Provider Internal Medicine; Visit Provider Internal Medicine
DX: R73.03 Prediabetes (principal); E66.01 Morbid (severe) obesity due to excess calories; Z68.41 Body mass index [BMI] 40.0-44.9, adult; Z71.3 Dietary counseling and surveillance
CPT/HCPCS: 97802

== ENCOUNTER → 2019-09-28 12:45 | Outpatient (CLI) | payer OTHER, SELFPAY ==
[2018-02-14 21:40] VITALS: BMI 40.7
--- NOTE | 2019-09-28 12:53 | DIET.PN ---
Dietary Progress Note RD f/u c Alexei for dietary management of morbid obesity and HTN Alexei is discouraged because he gained 1# today despite many positive dietary changes. Pt reports in family last week which derailed his physical activity. Positive changes include: pt following plate method for eating and has decreased carbs, increased protein and increased f/v. reports eating garden salads every day. Lunch: [place] sliced cheese 3 to 4 slices c 8-12 Roasted garlic triscuit crackers 40oz water per day compared to 0oz previously went from 3/4 to a whole pizza to 2 slices c salad Pt now drinking calm magnesium drink and liquid Vitamin D drops daily Pt concerned about calcium intake and has questions on probiotics and prebiotics. Long discussion on added sugar in diet. Interventions: 1. Discussed calcium transporters uptake more calcium in gut when deficient and does not uptake as much when adequate supply. Pt should aim for 1,000mg/d through food sources and only supplement to fill the gap. Pt will start his MVI which should be adequate amount. 2. Educated pt on pre- and probiotics, food sources of each, and how to pick a supplement. Pt received handout. 3. Educated pt on limiting added sugar to 45g/d. Discussed natural vs artificial vs naturally occurring vs added sugars. Practiced label reading. Pt tends not to drink sugary things except beer once weekly but does have a sweet tooth for hard candies and other candies. Pt was surprised by sugar content of some of his go to candies. Pt is very motivated, is tempted by quick fix solutions, but does understand that sustainable weight loss will be the best choice for long lasting results. Pt requests more information on what TO eat. [facility] pt get Vit D and testosterone checked r/t low levels in past which may derail his weight loss efforts. If pt not actively losing by our f/u in 2w, consider IF, FMD. Problem solve and address barriers to physical activity.
== END ==
PROVIDERS: Family Provider Internal Medicine; PCP Internal Medicine; Referring Provider Internal Medicine; Visit Provider Internal Medicine
DX: E66.9 Obesity, unspecified (principal); I10 Essential (primary) hypertension; Z71.3 Dietary counseling and surveillance
CPT/HCPCS: 97802

== ENCOUNTER → 2019-10-05 12:10 | Outpatient (CLI) | payer OTHER, SELFPAY ==
[2018-02-14 21:40] VITALS: BMI 40.7
[2019-10-05 13:39] LABS: BUN Creatinine Ratio 17.9 (6-22); Blood Urea Nitrogen 20 mg/dL (9-20); Calcium 9.4 mg/dL (8.4-10.2); Carbon Dioxide 30 mmol/L (22-32); Chloride 102 mmol/L (98-107); Estimated Glomerular Filt Rate > 60.0 mL/min (>60); Glucose 96 mg/dL (70-100); HEMOLYSIS < 15 (0-50); Potassium 4.8 mmol/L (3.4-5.1); Sodium 137 mmol/L (137-145)
[2019-10-05 16:35] LABS: Vitamin D 25 Hydroxy (D3) 19.9 ng/mL (30.0-100.0)
[2019-10-17 06:41] LABS: Percent Free Testosterone 2.52 % (1.50-4.20); Testosterone Free 5.42 ng/dL (5.00-21.00); Testosterone Total 215.1 ng/dL (264.0-916.0)
== END ==
PROVIDERS: Family Provider Internal Medicine; PCP Internal Medicine; Referring Provider Internal Medicine; Visit Provider Internal Medicine
DX: E29.1 Testicular hypofunction (principal); E66.01 Morbid (severe) obesity due to excess calories; I10 Essential (primary) hypertension
CPT/HCPCS: 36415; 80048; 82306; 84402; 84403

== ENCOUNTER → 2019-10-26 12:51 | Outpatient (CLI) | payer OTHER, SELFPAY ==
[2018-02-14 21:40] VITALS: BMI 40.7
--- NOTE | 2019-10-26 13:52 | DIET.PN ---
Dietary Progress Note Assessment: 49y M here for followup for weight management (morbid obesity) and HTN. Pt started walking 1.2-2.4 miles per day around his neighborhood. He decided to enroll in [employer] with 1200kcal goal and has been doing this for 5 days. Pt doesnt feel he can make fast enough progress through monitoring food he prepares himself so using this rigid system for now to gain momentum. Pts BP 115/88, pt excited as this is marked improvement for him. Pt has lost 10# in past 3w, current weight 300#. Pt noticed his endurance increased after only two weeks of walking and his weight was coming off fast even before starting food system. Pt shared successes including not snacking in [employer], avoiding etoh on tuesday nights. Labs: Vit D 19 L*, Total Testosterone 236 L* Pts Vit D and Testosterone labs came back low. They were both low last time checked in 2016. Pt encouraged to contact PCP for interventions to address both as they are correlated to depression, fatigue, and weight gain. Interventions: 1. Discussed pros/cons of [employer]. Counselled pt on having assistance transitioning from the strict meal program to normalized eating after he loses the first 40# to protect against rebound weight gain. We set up plan to meet monthly together to facilitate this transition. 2. Collaborated c pt on problem solving the free foods and power foods he gets in his current meal plans. Starting next week pt will add 2-3 oz lean protein to his lunch and dinner. Discussed sodium-free seasonings. 3. Discussed timing of meals and exercise, to ensure a snack before going on walks. Monitoring/Evaluations: pt scheduled for f/u c RD in 1 mo to monitor weight, BP, and problem solve barriers.
== END ==
PROVIDERS: Family Provider Internal Medicine; PCP Internal Medicine; Referring Provider Internal Medicine; Visit Provider Internal Medicine
DX: E66.01 Morbid (severe) obesity due to excess calories (principal); I10 Essential (primary) hypertension; R79.9 Abnormal finding of blood chemistry, unspecified; Z71.3 Dietary counseling and surveillance
CPT/HCPCS: 97802

== ENCOUNTER → 2019-11-23 13:03 | Outpatient (CLI) | payer OTHER, SELFPAY ==
[2018-02-14 21:40] VITALS: BMI 40.7
--- NOTE | 2019-11-23 13:10 | DIET.PN ---
Dietary Progress Note Assessment: 49y M here for RD f/u for help c managing HTN and weight management. pt taking in 1500kcals, is adding protein to [employer] meals walking 2mi per day, always after lunch, sometimes 3mi, working on 20min miles but now is 30min miles but does not have to stop and rest weekends walking away from home using [employer] my walk Pt doing extremely well with great insight. We problem solved an upcoming trip to [place] and figured out how to stay on track with food intake (bring [employer]ystems, stop at [employer] when arrived to buy veggies and precooked chicken breast). Will find a route to walk that is 2mi per day. WT: 290# (started at 311# 4 w ago) UBW: 311# BMI: 44 Monitoring/Evaluations: f/u in 4w to assess progress and problem solve barriers.
== END ==
PROVIDERS: Family Provider Internal Medicine; PCP Internal Medicine; Referring Provider Internal Medicine; Visit Provider Internal Medicine
DX: I10 Essential (primary) hypertension (principal)
CPT/HCPCS: 97803

== ENCOUNTER → 2020-04-17 13:15 | Outpatient (CLI) | payer OTHER, SELFPAY ==
[2020-01-14 15:08] VITALS: BMI 40.7
[2020-04-17 15:59] LABS: COVID19 -Nasal RAPID Negative (Negative)
== END ==
PROVIDERS: PCP Internal Medicine; Visit Provider Surgery
DX: Z20.822 Contact with and (suspected) exposure to COVID-19 (principal); Z01.812 Encounter for preprocedural laboratory examination
CPT/HCPCS: 87635; C9803

== ENCOUNTER 2020-04-18 09:11 | Day surgery (SDC) | payer OTHER, SELFPAY ==
[2020-01-14 15:08] VITALS: BMI 40.7
[2020-04-18 09:41] VITALS: BP 122/87; PULSE 68; RESP 16; TEMP 36.6; O2SAT 100; BMI 40.6
[2020-04-18] MEDS: SODIUM CHLORIDE 0.9% 1,000 ML 200 ML IV (09:56)
--- NOTE | 2020-04-18 10:00 | PM.HP.1 ---
History of Present Illness History of Present Illness Date Patient Seen: 04/18/20 Time Patient Seen: 10:00 Chief complaint: SDC Narrative: This is a 49-year-old man who has never had a screening colonoscopy. He denies any personal or family history of colon cancers or colon polyps. He denies any melena, hematochezia, unexplained abdominal pain, or unexplained weight loss. He has a BMI of 40, and has been working very hard on his health to lose weight, and says he is losing weight and feeling better. He uses a CPAP at night. He denies any history of heart problems or respiratory issues other than the sleep apnea. ROS: Thirteen system review is otherwise negative other than as mentioned below and in HPI. PE: GENERAL: Well groomed and cooperative. Morbid obesity. Appears stated age. Answers questions promptly and appropriately. Vital signs noted. HENT: Normocephalic, atraumatic. Hearing intact. EYES: Conjunctiva pink, sclera white, no periorbital swelling. CARDIOVASCULAR: Regular rate. No pedal edema. RESPIRATORY: Non-tachypneic, breathing comfortably on room air. GASTROINTESTINAL: Abdomen soft and non-distended GENITALURINARY: No flank tenderness. MUSCULOSKELETAL: Equal tone and mass bilaterally. SKIN: Warm, dry, soft, appropriate color for ethnicity. No other lesions, rashes, or wounds. NEURO: Alert and Oriented X 3. No gross sensory deficits, or cognitive issues. PSYCH: Appropriate affect and mood. Patient History Medical History (Updated 04/18/20 @ 10:02 by Jennifer Gao MD) Hyperlipidemia, unspecified (10/22/10) Hypertension Hypogonadism in male (02/16/16) Obesity, morbid, BMI 40.0-49.9 Sleep apnea in adult Family & Social History Family History Father Stroke Social History: household members spouse Tobacco & Substance use: Tobacco type cigarettes Smoking Status Former smoker alcohol intake current alcohol intake frequency a few times a week Substance Use Type does not use Meds Home Medications and Allergies Home Medications Medication Instructions Recorded Confirmed Type hydrochlorothiazide 25 mg tablet See Rx Instructions .ROUTE 12/14/19 04/18/20 Rx .COMPLEX #90 tablet benazepril 10 mg PO DAILY 04/18/20 04/18/20 History Allergies Allergy/AdvReac Type Severity Reaction Status Date / Time irbesartan Allergy Mild Hives, Verified 04/18/20 09:26 swelling amlodipine AdvReac Intermediate LE edema Verified 04/18/20 09:26 metoprolol AdvReac Intermediate dizziness Verified 04/18/20 09:26 lisinopril AdvReac Mild cough Verified 04/18/20 09:26 Exam Vital Signs (past 8 hours): - 04/18/20 09:41 Temperature 97.9 F Pulse Rate 68 Respiratory Rate 16 Blood Pressure 122/87 Pulse Oximetry 100 Oxygen Delivery Method Room Air Assessment & Plan Assessment and plan (1) Obesity, morbid, BMI 40.0-49.9: Status: Chronic (2) At average risk for colon cancer: Status: Acute Assessment & Plan narrative: Risks and benefits of screening colonoscopy and possible polypectomy were discussed with the patient including risk of bleeding, perforation, need for additional procedures, risks of anesthesia. The patient desires to proceed with the colonoscopy procedure. COVID-19 COVID-19 status: Negative Result date/Date tested (Pos, Neg/Pending): 04/17/20 Time Spent With Patient Time with patient: 15-24 minutes Quality VTE Deep Vein Thrombosis/Pulmonary Embolism Present on Admission: No
--- NOTE | 2020-04-18 10:02 | P.OP.ENDO_ITS ---
Operative Date/Time/Diagnoses Date of procedure: 04/18/20 Time of procedure: 10:02 Pre-op diagnosis: Average risk for colon cancer, appropriate age for screening colonoscopy Post-op diagnosis: same (Normal colon) Procedure & Clinicians Study performed: Colonoscopy Procedural sedation performed by the endoscopist Same procedure as scheduled: Yes Indications: Average risk for colon cancer, appropriate age for screening colonoscopy Surgeon: Jennifer Gao Procedure Notes SCOAP/Timeout: Performed Procedure in detail: The patient was brought to the room and placed in left lateral decubitus position with all bony prominences padded. A time-out was performed and then the patient was given procedural sedation starting with 4 mg of Versed and 100 mcg of fentanyl. Total of 6 mg of Versed and 150 micro g of fentanyl were given for the entire procedure. Vitals were monitored throughout the procedure and remained stable. Once adequately sedated, the procedure was begun. A rectal exam was performed revealing no abnormalities. The colonoscope was then introduced to the rectum and advanced to the cecum in the usual fashion. The cecum was identified by the appendiceal orifice, the mucosal tri- fold, and the ileocecal valve. The scope was then retracted while rotating side to side and examining each mucosal fold. A few scattered diverticula were seen in the colon, but no evidence of significant diverticulosis or diverticulitis. At the conclusion of the procedure retroflexion was performed and small grade 1- 2 internal hemorrhoids without stigmata of bleeding were seen. The scope was then withdrawn from the rectum the procedure was concluded. The patient tolerated the procedure well and was transferred to the PACU in stable condition. Scope withdrawal time: 6 Sedation minutes: 16 Specimen(s): none sent Complications: none Impression: Normal colon. Few scattered diverticula, but no significant diverticulosis or diverticulitis Post-procedure Recommendations: Colonscopy in 10 years (So long as no concerning colorectal symptoms arise before then) Follow up: as needed Disposition: PACU
[2020-04-18] MEDS: fentaNYL 250 MCG/5 ML INJ IV (10:10)
[2020-04-18] MEDS: MIDAZOLAM 5 MG/5 ML VIAL IV (10:10)
[2020-04-18 10:26] VITALS: BP 142/96; PULSE 66; RESP 16; TEMP 36.2; O2SAT 94
[2020-04-18 10:31] VITALS: BP 131/101; PULSE 74; RESP 20; O2SAT 93
[2020-04-18 10:37] VITALS: BP 126/90; PULSE 73; RESP 16; O2SAT 95
[2020-04-18 10:41] VITALS: PULSE 67; RESP 16; TEMP 36.2; O2SAT 95
[2020-04-18 10:42] VITALS: BP 126/95
== END 2020-04-18 10:59 | disposition home or self-care (01) ==
PROVIDERS: PCP Internal Medicine; Referring Provider Surgery; Visit Provider Surgery
PROC: 0DJD8ZZ Inspection of Lower Intestinal Tract, Via Natural or Artificial Opening Endoscopic (ICD-10-PCS; CPT 45378; principal; 2020-04-18 10:00)
DX: Z12.11 Encounter for screening for malignant neoplasm of colon (principal); E66.01 Morbid (severe) obesity due to excess calories; Z68.41 Body mass index [BMI] 40.0-44.9, adult; G47.33 Obstructive sleep apnea (adult) (pediatric); I10 Essential (primary) hypertension; K64.0 First degree hemorrhoids
CPT/HCPCS: 45378; 99152; J2250; J3010

== ENCOUNTER → 2022-01-11 08:27 | Outpatient (CLI) | payer OTHER, SELFPAY ==
[2020-01-14 15:08] VITALS: BMI 40.7
[2022-01-11 11:06] LABS: Alanine Aminotransferase 26 IU/L (<50); Albumin 4.2 g/dL (3.5-5.0); Albumin Globulin Ratio 1.4 (1.0-2.8); Alkaline Phosphatase 64 U/L (38-126); Aspartate Aminotransferase 25 IU/L (17-59); BUN Creatinine Ratio 18.3 (6-22); Bilirubin Total 0.6 mg/dL (0.2-1.3); Blood Urea Nitrogen 21 mg/dL (9-20); Carbon Dioxide 28 mmol/L (22-32); Chloride 99 mmol/L (98-107); Cholesterol 187 mg/dL (140-199); Estimated Glomerular Filt Rate > 60 mL/min (>60); Globulin 2.9 g/dL (1.7-4.1); Glucose 109 mg/dL (70-100); HDL Cholesterol 46 mg/dL (40-60); HEMOLYSIS < 15 (0-50); LDL Cholesterol Calculated 115 mg/dL (<100); Potassium 4.3 mmol/L (3.4-5.1); Sodium 139 mmol/L (137-145); Total Protein 7.1 g/dL (6.3-8.2); Triglycerides 128 mg/dL (35-150)
== END ==
PROVIDERS: PCP Internal Medicine; Referring Provider Internal Medicine; Visit Provider Internal Medicine
DX: E66.01 Morbid (severe) obesity due to excess calories (principal); E78.5 Hyperlipidemia, unspecified; I10 Essential (primary) hypertension
CPT/HCPCS: 36415; 80053; 80061

== ENCOUNTER 2023-01-06 14:25 | Emergency (ER) | payer OTHER, SELFPAY ==
[2022-07-12 12:16] VITALS: BMI 40.7
[2023-01-06] VITALS (21 sets, daily range): BP systolic 124–171; BP diastolic 70–92; PULSE 55–83; RESP 17–37; TEMP 36.8; O2SAT 94–99; BMI 48.7
--- NOTE | 2023-01-06 14:36 | DI.RAD.S_ITS ---
PROCEDURE: XR CHEST 1V INDICATIONS: chest pain TECHNIQUE: One view of the chest was acquired. COMPARISON: None. FINDINGS: Surgical changes and devices: None. Lungs and pleura: Lungs are clear. No pleural effusions or pneumothorax. Mediastinum: Mediastinal contours appear normal. Heart size is normal. Bones and chest wall: No suspicious bony lesions. Overlying soft tissues appear unremarkable. IMPRESSION: No acute cardiopulmonary abnormalities or focal airspace disease. Dictated by: Lee Brizuela M.D. on 01/06/2023 at 15:36 Approved by: Lee Brizuela M.D. on 01/06/2023 at 15:39
[2023-01-06] MEDS: ASPIRIN 81 MG CHEW TAB 324 MG PO (15:12)
[2023-01-06 15:13] LABS: Add Manual Diff / Slide Review NO; Basophils Absolute Auto 0 /uL (0-100); Basophils Percent Auto 0.1 % (0-2); Eosinophils Absolute Auto 400 /uL (0-450); Eosinophils Percent Auto 4.9 % (2-4); Hematocrit 41.2 % (41-53); Hemoglobin 13.9 g/dL (13.5-17.5); Lymphocytes Absolute Auto 1500 /uL (1100-4500); Lymphocytes Percent Auto 17.2 % (25-40); Mean Corpuscular HGB Conc 33.7 % (30-36); Mean Corpuscular Hemoglobin 28.5 PG (26-34); Mean Corpuscular Volume 84.6 fL (80-100); Monocytes Absolute Auto 700 /uL (0-900); Monocytes Percent Auto 8.2 % (3-14); Neutrophils Absolute Auto 6000 /uL (1500-7000); Neutrophils Percent Auto 69.6 % (50-75); Platelet Count 262 X10^3/uL (150-400); Red Blood Cell Count 4.87 X10^6/uL (4.5-5.9); Red Cell Distribution Width 14.4 % (11.6-14.8); White Blood Cell Count 8.7 X10^3/uL (4.5-11.0)
--- NOTE | 2023-01-06 15:14 | ED_ITS ---
HPI - Chest Pain <Jen Loomis MD - Last Filed: 01/06/23 18:12> General Chief Complaint: Chest Pain Stated Complaint: chest pain Time Seen by Provider: 01/06/23 14:39 Source: patient Mode of arrival: Ambulatory Limitations: no limitations History of Present Illness HPI narrative: 52-year-old male with history of hypertension presents by private vehicle from home for 2 weeks of left-sided substernal aching chest pain on exertion. Patient has been on a work trip for the last 2 weeks, he just got back into town today which is why he is here for evaluation. Pain is reproducible with exertion, alleviated with rest. Takes daily baby aspirin, none today. Reports significant family history of heart disease in his father. Patient is a former smoker, smokes cigarettes from age 16 to age 34. Currently pain-free. Related Data Previous Rx's Medication Instructions Recorded benazepril 40 mg tablet 40 mg PO DAILY #90 tabs 12/01/21 hydrochlorothiazide 25 mg tablet See Rx Instructions .Route 01/19/22 .COMPLEX #90 tabs Allergies Allergy/AdvReac Type Severity Reaction Status Date / Time irbesartan Allergy Mild Hives, Verified 08/02/22 14:24 swelling amlodipine AdvReac Intermediate LE edema Verified 08/02/22 14:24 metoprolol AdvReac Intermediate dizziness Verified 08/02/22 14:24 lisinopril AdvReac Mild cough Verified 08/02/22 14:24 Review of Systems <Jen Loomis MD - Last Filed: 01/06/23 18:12> Review of Systems Narrative: CONSTITUTIONAL- Denies: fever, chills, fatigue HEENT- Denies: sore throat, nosebleed, vision changes RESPIRATORY- Denies: shortness of breath, cough, wheezing CARDIAC-reports: Chest pain Denies: edema, orthopnea GI- Denies: abdominal pain, nausea, vomiting, constipation, diarrhea - Denies: frequency, dysuria, hematuria, flank pain MSK- Denies: extremity pain, extremity swelling, joint pain, joint swelling SKIN- Denies: rash, itching, burn, swelling NEUROLOGICAL- Denies: headache, numbness, weakness, dizziness PSYCHIATRIC- Denies: anxiety, depression, suicidal ideation, homicidal ideation Patient History <Jen Loomis MD - Last Filed: 01/06/23 18:12> Medical History (Updated 01/06/23 @ 19:01 by Harry Castellon DO) COVID-19 Hyperlipidemia, unspecified (10/22/10) Sleep apnea in adult Obesity, morbid, BMI 40.0-49.9 Hypertension Hypogonadism in male (02/16/16) Family History Father Stroke Social History household members: spouse Smoking Status: Former smoker alcohol intake: current Smoking Status: Former smoker alcohol intake frequency: a few times a week Substance Use Type: does not use Exam <Jen Loomis MD - Last Filed: 01/06/23 18:12> Initial Vital Signs Initial Vital Signs: Vital Signs Temperature 98.2 F 01/06/23 14:30 Pulse Rate 83 01/06/23 14:30 Respiratory Rate 18 01/06/23 14:30 Blood Pressure 161/88 H 01/06/23 14:30 Pulse Oximetry 97 01/06/23 14:30 Oxygen Delivery Method Room Air 01/06/23 14:30 Const: Awake, alert, no acute distress, nontoxic appearing, obese Eyes: PERRL, EOMI, conjunctiva normal ENT: Atraumatic, dentition normal, mucous membranes moist Cardiac: regular rate, regular rhythm RESP: unlabored, clear bilaterally, no wheezing GI: Atraumatic, soft, nontender, nondistended, no rebound, no guarding MSK: Atraumatic, full range of motion, pulses equal Skin: Warm, Dry, intact, no rashes Neuro: AO x3, CN II-XII grossly intact, moves all extremities Psych: affect normal, mood normal, not suicidal, not homicidal <Harry Castellon DO - Last Filed: 01/06/23 20:43> Initial Vital Signs Initial Vital Signs: Vital Signs Temperature 98.2 F 01/06/23 14:30 Pulse Rate 83 01/06/23 14:30 Respiratory Rate 18 01/06/23 14:30 Blood Pressure 161/88 H 01/06/23 14:30 Pulse Oximetry 97 01/06/23 14:30 Oxygen Delivery Method Room Air 01/06/23 14:30 Scores <Jen Loomis MD - Last Filed: 01/06/23 18:12> HEART Score Heart Score history: Moderately Suspicious Heart Score EKG: Normal Heart Score Age: 45-64 years old Heart Score risk factors: > 3 risk factors or hx of atherosclerotic disease Heart Score troponin: < or = to normal limit Heart Score Total: 4 <Harry CastellonDO - Last Filed: 01/06/23 20:43> HEART Score Heart Score Total: 4 Course <Jen Loomis MD - Last Filed: 01/06/23 18:12> Orders Ordered: ED Orders 01/06/23 14:36 XR chest 1V Stat EKG-12 Lead Stat 01/06/23 14:49 Complete Blood Count AUTO DIFF Stat Comprehensive Metabolic Panel Stat Lipase Stat Magnesium Stat PTT Partial Thromboplastin Roger Stat Prothrombin Time INR Stat Troponin & CK Cardiac Panel Stat 01/06/23 16:51 Trop I [Troponin I] Stat Heparin Sodium/Dextrose (Heparin Drip) 25,000 unit in 500 mls @ 20 mls/hr IV CONT FLY; Protocol Last Admin: 01/06/23 18:49 Dose: 1,000 units/hr, 20 mls/hr Documented By: KELL Co-signed By: DEBBY Discontinued Medications Aspirin (Aspirin 81 Mg Chew Tab) 324 mg PO NOW ONE Stop: 01/06/23 14:37 Last Admin: 01/06/23 15:12 Dose: 324 mg Documented By: TRIPP Atorvastatin Calcium (Atorvastatin 20 Mg Tablet) 80 mg PO NOW ONE Stop: 01/06/23 18:46 Last Admin: 01/06/23 19:23 Dose: 80 mg Documented By: KELL Heparin Sodium (Porcine) (Heparin 5,000 Unit/Ml Vial) 4,000 unit IV NOW ONE Stop: 01/06/23 17:46 Last Admin: 01/06/23 18:02 Dose: Not Given Documented By: KELL Heparin Sodium (Porcine) (Heparin 5,000 Unit/Ml Vial) 5,000 unit IV NOW ONE Stop: 01/06/23 18:00 Last Admin: 01/06/23 18:46 Dose: 5,000 unit Documented By: KELL Heparin Sodium/Dextrose (Heparin Drip) 25,000 unit in 500 mls @ 35.924 mls/hr IV CONT FLY; Protocol Last Admin: 01/06/23 18:01 Dose: Not Given Documented By: KELL Reevaluation(s) Reevaluation #1: Troponins stable x2. Discussed case with Cardiology. Based on patient's age and risk factors there is high likelihood to be underlying significant coronary disease. Cardiology recommends initiation of heparin and transferred to facility with interventional services. Discussed labs and imaging results with patient and his at bedside. They are in agreement with transfer at this time. Consultations Consultation #1: Dr. Smith - recommended transfer to facility with interventional cardiology Vital Signs Vital signs: Vital Signs - 8 hr 01/06/23 14:30 01/06/23 14:42 01/06/23 14:42 Temperature 98.2 F Pulse Rate 83 78 Respiratory Rate 18 Blood Pressure 161/88 H 171/81 H Pulse Oximetry 97 97 Oxygen Delivery Method Room Air 01/06/23 15:00 01/06/23 15:00 01/06/23 15:30 Temperature Pulse Rate 73 Respiratory Rate Blood Pressure 164/76 H 152/85 H Pulse Oximetry 95 Oxygen Delivery Method 01/06/23 15:30 01/06/23 16:00 01/06/23 16:01 Temperature Pulse Rate 65 67 Respiratory Rate 29 H 31 H Blood Pressure 139/87 Pulse Oximetry 95 97 Oxygen Delivery Method 01/06/23 16:01 01/06/23 16:30 01/06/23 16:30 Temperature Pulse Rate 81 64 Respiratory Rate 37 H 28 H Blood Pressure 152/92 H Pulse Oximetry 97 94 Oxygen Delivery Method 01/06/23 17:00 01/06/23 17:00 01/06/23 17:30 Temperature Pulse Rate 62 63 Respiratory Rate 19 30 H Blood Pressure 129/75 Pulse Oximetry 97 96 Oxygen Delivery Method 01/06/23 17:31 01/06/23 17:31 01/06/23 18:00 Temperature Pulse Rate 59 L 64 Respiratory Rate 29 H 24 Blood Pressure 164/86 H Pulse Oximetry 94 95 Oxygen Delivery Method 01/06/23 18:40 01/06/23 18:53 01/06/23 18:53 Temperature Pulse Rate 57 L 60 Respiratory Rate 20 Blood Pressure 142/77 H Pulse Oximetry 96 98 Oxygen Delivery Method 01/06/23 19:00 01/06/23 19:01 01/06/23 19:01 Temperature Pulse Rate 58 L 58 L Respiratory Rate 18 Blood Pressure 142/76 H Pulse Oximetry 98 97 Oxygen Delivery Method 01/06/23 19:30 01/06/23 19:31 01/06/23 19:31 Temperature Pulse Rate 57 L 58 L Respiratory Rate 18 Blood Pressure 158/70 H Pulse Oximetry 98 97 Oxygen Delivery Method 01/06/23 20:00 01/06/23 20:01 01/06/23 20:01 Temperature Pulse Rate 59 L 58 L Respiratory Rate Blood Pressure 153/70 H Pulse Oximetry 99 99 Oxygen Delivery Method 01/06/23 20:30 01/06/23 20:31 01/06/23 20:31 Temperature Pulse Rate 55 L 56 L Respiratory Rate 17 21 Blood Pressure 124/82 Pulse Oximetry 97 98 Oxygen Delivery Method <Harry Castellon, - Last Filed: 01/06/23 20:43> Orders Ordered: ED Orders 01/06/23 14:36 XR chest 1V Stat EKG-12 Lead Stat 01/06/23 14:49 Complete Blood Count AUTO DIFF Stat Comprehensive Metabolic Panel Stat Lipase Stat Magnesium Stat PTT Partial Thromboplastin Roger Stat Prothrombin Time INR Stat Troponin & CK Cardiac Panel Stat 01/06/23 16:51 Trop I [Troponin I] Stat Heparin Sodium/Dextrose (Heparin Drip) 25,000 unit in 500 mls @ 20 mls/hr IV CONT FLY; Protocol Last Admin: 01/06/23 18:49 Dose: 1,000 units/hr, 20 mls/hr Documented By: KELL Co-signed By: DEBBY Discontinued Medications Aspirin (Aspirin 81 Mg Chew Tab) 324 mg PO NOW ONE Stop: 01/06/23 14:37 Last Admin: 01/06/23 15:12 Dose: 324 mg Documented By: TRIPP Atorvastatin Calcium (Atorvastatin 20 Mg Tablet) 80 mg PO NOW ONE Stop: 01/06/23 18:46 Last Admin: 01/06/23 19:23 Dose: 80 mg Documented By: KELL Heparin Sodium (Porcine) (Heparin 5,000 Unit/Ml Vial) 4,000 unit IV NOW ONE Stop: 01/06/23 17:46 Last Admin: 01/06/23 18:02 Dose: Not Given Documented By: KELL Heparin Sodium (Porcine) (Heparin 5,000 Unit/Ml Vial) 5,000 unit IV NOW ONE Stop: 01/06/23 18:00 Last Admin: 01/06/23 18:46 Dose: 5,000 unit Documented By: KELL Heparin Sodium/Dextrose (Heparin Drip) 25,000 unit in 500 mls @ 35.924 mls/hr IV CONT FLY; Protocol Last Admin: 01/06/23 18:01 Dose: Not Given Documented By: KELL Vital Signs Vital signs: Vital Signs - 8 hr 01/06/23 14:30 01/06/23 14:42 01/06/23 14:42 Temperature 98.2 F Pulse Rate 83 78 Respiratory Rate 18 Blood Pressure 161/88 H 171/81 H Pulse Oximetry 97 97 Oxygen Delivery Method Room Air 01/06/23 15:00 01/06/23 15:00 01/06/23 15:30 Temperature Pulse Rate 73 Respiratory Rate Blood Pressure 164/76 H 152/85 H Pulse Oximetry 95 Oxygen Delivery Method 01/06/23 15:30 01/06/23 16:00 01/06/23 16:01 Temperature Pulse Rate 65 67 Respiratory Rate 29 H 31 H Blood Pressure 139/87 Pulse Oximetry 95 97 Oxygen Delivery Method 01/06/23 16:01 01/06/23 16:30 01/06/23 16:30 Temperature Pulse Rate 81 64 Respiratory Rate 37 H 28 H Blood Pressure 152/92 H Pulse Oximetry 97 94 Oxygen Delivery Method 01/06/23 17:00 01/06/23 17:00 01/06/23 17:30 Temperature Pulse Rate 62 63 Respiratory Rate 19 30 H Blood Pressure 129/75 Pulse Oximetry 97 96 Oxygen Delivery Method 01/06/23 17:31 01/06/23 17:31 01/06/23 18:00 Temperature Pulse Rate 59 L 64 Respiratory Rate 29 H 24 Blood Pressure 164/86 H Pulse Oximetry 94 95 Oxygen Delivery Method 01/06/23 18:40 01/06/23 18:53 01/06/23 18:53 Temperature Pulse Rate 57 L 60 Respiratory Rate 20 Blood Pressure 142/77 H Pulse Oximetry 96 98 Oxygen Delivery Method 01/06/23 19:00 01/06/23 19:01 01/06/23 19:01 Temperature Pulse Rate 58 L 58 L Respiratory Rate 18 Blood Pressure 142/76 H Pulse Oximetry 98 97 Oxygen Delivery Method 01/06/23 19:30 01/06/23 19:31 01/06/23 19:31 Temperature Pulse Rate 57 L 58 L Respiratory Rate 18 Blood Pressure 158/70 H Pulse Oximetry 98 97 Oxygen Delivery Method 01/06/23 20:00 01/06/23 20:01 01/06/23 20:01 Temperature Pulse Rate 59 L 58 L Respiratory Rate Blood Pressure 153/70 H Pulse Oximetry 99 99 Oxygen Delivery Method 01/06/23 20:30 01/06/23 20:31 01/06/23 20:31 Temperature Pulse Rate 55 L 56 L Respiratory Rate 17 21 Blood Pressure 124/82 Pulse Oximetry 97 98 Oxygen Delivery Method MDM - Chest Pain <Jen Loomis MD - Last Filed: 01/06/23 18:12> Lab Data 01/06/23 14:49 01/06/23 14:49 Labs: Lab Results 01/06/23 01/06/23 Range/Units 14:49 16:51 WBC 8.7 (4.5-11.0) X10^3/uL RBC 4.87 (4.5-5.9) X10^6/uL Hgb 13.9 (13.5-17.5) g/dL Hct 41.2 (41-53) % MCV 84.6 (80-100) fL MCH 28.5 (26-34) PG MCHC 33.7 (30-36) % RDW 14.4 (11.6-14.8) % Plt Count 262 (150-400) X10^3/uL Neut % (Auto) 69.6 (50-75) % Lymph % (Auto) 17.2 L (25-40) % Maverick % (Auto) 8.2 (3-14) % Eos % (Auto) 4.9 H (2-4) % Baso % (Auto) 0.1 (0-2) % Neut # (Auto) 6000 (1813-6671) /uL Lymph # (Auto) 1500 (3836-5047) /uL Maverick # (Auto) 700 (0-900) /uL Eos # (Auto) 400 (0-450) /uL Baso # (Auto) 0 (0-100) /uL PT 12.2 (10.1-12.7) SECONDS INR 1.1 (0.9-1.3) APTT 30 (26-36) SECONDS Sodium 138 (137-145) mmol/L Potassium 3.8 (3.4-5.1) mmol/L Chloride 102 (98-107) mmol/L Carbon Dioxide 31 (22-32) mmol/L BUN 18 (9-20) mg/dL Creatinine 1.17 (0.66-1.25) mg/dL Estimated GFR > 60 (>60) mL/min BUN/Creatinine Ratio 15.4 (6-22) Glucose 98 (70-100) mg/dL Calcium 9.5 (8.4-10.2) mg/dL Magnesium 2.1 (1.6-2.3) mg/dL Total Bilirubin 0.5 (0.2-1.3) mg/dL AST 28 (17-59) IU/L ALT 30 (<50) IU/L Alkaline Phosphatase 59 (38-126) U/L Total Creatine Kinase 156 (55-170) U/L Troponin I 0.025 0.028 (0.01-0.034) ng/mL Total Protein 7.2 (6.3-8.2) g/dL Albumin 4.3 (3.5-5.0) g/dL Globulin 2.9 (1.7-4.1) g/dL Albumin/Globulin Ratio 1.5 (1.0-2.8) Lipase 83 (23-300) U/L <Harry Castellon, DO - Last Filed: 01/06/23 20:43> Lab Data Labs: Lab Results 01/06/23 01/06/23 Range/Units 14:49 16:51 WBC 8.7 (4.5-11.0) X10^3/uL RBC 4.87 (4.5-5.9) X10^6/uL Hgb 13.9 (13.5-17.5) g/dL Hct 41.2 (41-53) % MCV 84.6 (80-100) fL MCH 28.5 (26-34) PG MCHC 33.7 (30-36) % RDW 14.4 (11.6-14.8) % Plt Count 262 (150-400) X10^3/uL Neut % (Auto) 69.6 (50-75) % Lymph % (Auto) 17.2 L (25-40) % Maverick % (Auto) 8.2 (3-14) % Eos % (Auto) 4.9 H (2-4) % Baso % (Auto) 0.1 (0-2) % Neut # (Auto) 6000 (0424-0967) /uL Lymph # (Auto) 1500 (8404-0155) /uL Maverick # (Auto) 700 (0-900) /uL Eos # (Auto) 400 (0-450) /uL Baso # (Auto) 0 (0-100) /uL PT 12.2 (10.1-12.7) SECONDS INR 1.1 (0.9-1.3) APTT 30 (26-36) SECONDS Sodium 138 (137-145) mmol/L Potassium 3.8 (3.4-5.1) mmol/L Chloride 102 (98-107) mmol/L Carbon Dioxide 31 (22-32) mmol/L BUN 18 (9-20) mg/dL Creatinine 1.17 (0.66-1.25) mg/dL Estimated GFR > 60 (>60) mL/min BUN/Creatinine Ratio 15.4 (6-22) Glucose 98 (70-100) mg/dL Calcium 9.5 (8.4-10.2) mg/dL Magnesium 2.1 (1.6-2.3) mg/dL Total Bilirubin 0.5 (0.2-1.3) mg/dL AST 28 (17-59) IU/L ALT 30 (<50) IU/L Alkaline Phosphatase 59 (38-126) U/L Total Creatine Kinase 156 (55-170) U/L Troponin I 0.025 0.028 (0.01-0.034) ng/mL Total Protein 7.2 (6.3-8.2) g/dL Albumin 4.3 (3.5-5.0) g/dL Globulin 2.9 (1.7-4.1) g/dL Albumin/Globulin Ratio 1.5 (1.0-2.8) Lipase 83 (23-300) U/L [facility] Narrative Medical decision making narrative: Dr Castellon: Received turned over. Review patient's history and physical and workup up to this point. Has a 2- troponins. Nonspecific changes in the EKG. Has had exertional chest discomfort over the past couple weeks. Patient is on heparin. I did discuss the case with Cardiology had [facility] who agrees to see the patient after arrival. I then discussed the case with Dr. Anderson hospitalist on-call who accepts the patient for transfer. The patient is stable for transport. Discharge Plan Departure Patient Disposition: [facility] Clinical Impression: Chest pain, Hypertension Prescriptions: No Action hydrochlorothiazide 25 mg tablet See Rx Instructions .ROUTE .COMPLEX Qty: 90 3RF Dose Instruction: TAKE 1 TABLET BY MOUTH DAILY Rx Instructions: TAKE 1 TABLET BY MOUTH DAILY benazepril 40 mg tablet 40 mg PO DAILY Qty: 90 4RF Referrals: Ernesto Cai MD [Primary Care Provider] -
[2023-01-06 15:27] LABS: INR 1.1 (0.9-1.3); Prothrombin Time 12.2 SECONDS (10.1-12.7)
[2023-01-06 15:30] LABS: PTT Partial Thromboplastin Tim 30 SECONDS (26-36)
[2023-01-06 15:36] LABS: Alanine Aminotransferase 30 IU/L (<50); Albumin 4.3 g/dL (3.5-5.0); Albumin Globulin Ratio 1.5 (1.0-2.8); Alkaline Phosphatase 59 U/L (38-126); Aspartate Aminotransferase 28 IU/L (17-59); BUN Creatinine Ratio 15.4 (6-22); Bilirubin Total 0.5 mg/dL (0.2-1.3); Blood Urea Nitrogen 18 mg/dL (9-20); Calcium 9.5 mg/dL (8.4-10.2); Carbon Dioxide 31 mmol/L (22-32); Chloride 102 mmol/L (98-107); Creatine Kinase 156 U/L (55-170); Estimated Glomerular Filt Rate > 60 mL/min (>60); Globulin 2.9 g/dL (1.7-4.1); Glucose 98 mg/dL (70-100); HEMOLYSIS < 15 (0-50); Lipase 83 U/L (23-300); Magnesium 2.1 mg/dL (1.6-2.3); Potassium 3.8 mmol/L (3.4-5.1); Sodium 138 mmol/L (137-145); Total Protein 7.2 g/dL (6.3-8.2)
[2023-01-06 15:47] LABS: Troponin I 0.025 ng/mL (0.01-0.034)
[2023-01-06 17:33] LABS: Troponin I 0.028 ng/mL (0.01-0.034)
[2023-01-06] MEDS: HEPARIN 5,000 UNIT/ML VIAL 5000 UNIT IV (18:46)
[2023-01-06] MEDS: HEPARIN DRIP 25,000 UNIT/500 ML IV.SOLN 20 UNIT IV (18:49)
[2023-01-06] MEDS: ATORVASTATIN 20 MG TABLET 80 MG PO (19:23)
--- NOTE | 2023-01-06 21:03 | PC.NURSE ---
Pt transferred to [facility] with heparin running, bag sent with pt and transport crew.
== END 2023-01-06 20:55 | disposition short-term general hospital (02) ==
PROVIDERS: Emergency Medicine; Emergency Provider Emergency Medicine; PCP Internal Medicine
DX: R07.9 Chest pain, unspecified (principal); I10 Essential (primary) hypertension; Z79.82 Long term (current) use of aspirin
CPT/HCPCS: 36415; 71045; 80053; 82550; 83690; 83735; 84484; 85025; 85610; 85730; 93005; 96365; 96366; 96375; 99284; J1644

== ENCOUNTER 2023-08-01 08:30 | Outpatient (RCR) | payer OTHER, SELFPAY ==
[2022-07-12 12:16] VITALS: BMI 40.7
== END 2023-08-01 10:30 ==
LOC: CAR 08:30
PROVIDERS: PCP Internal Medicine; Referring Provider Internal Medicine; Visit Provider Internal Medicine
DX: I25.10 Atherosclerotic heart disease of native coronary artery without angina pectoris (principal)
CPT/HCPCS: 93798

== ENCOUNTER → 2023-11-12 08:56 | Outpatient (CLI) | payer OTHER, SELFPAY ==
[2022-07-12 12:16] VITALS: BMI 40.7
[2023-11-12 10:13] LABS: Alanine Aminotransferase 23 IU/L (<50); Albumin 4.2 g/dL (3.5-5.0); Albumin Globulin Ratio 1.7 (1.0-2.8); Alkaline Phosphatase 63 U/L (38-126); Aspartate Aminotransferase 25 IU/L (17-59); BUN Creatinine Ratio 18.3 (6-22); Bilirubin Total 0.9 mg/dL (0.2-1.3); Blood Urea Nitrogen 19 mg/dL (9-20); Carbon Dioxide 23 mmol/L (22-32); Chloride 106 mmol/L (98-107); Cholesterol 121 mg/dL (140-199); Estimated Glomerular Filt Rate > 60 mL/min (>60); Globulin 2.5 g/dL (1.7-4.1); Glucose 124 mg/dL (70-100); HDL Cholesterol 40 mg/dL (40-60); HEMOLYSIS 30 (0-50); LDL Cholesterol Calculated 61 mg/dL (<100); Potassium 4.4 mmol/L (3.4-5.1); Sodium 138 mmol/L (137-145); Total Protein 6.7 g/dL (6.3-8.2); Triglycerides 101 mg/dL (35-150)
== END ==
PROVIDERS: PCP Internal Medicine; Referring Provider Nurse Practitioner; Visit Provider Nurse Practitioner
DX: E78.5 Hyperlipidemia, unspecified (principal)
CPT/HCPCS: 36415; 80053; 80061

== ENCOUNTER → 2024-05-18 07:25 | Outpatient (CLI) | payer OTHER, SELFPAY ==
[2022-07-12 12:16] VITALS: BMI 40.7
[2024-05-18 07:59] LABS: Hematocrit 42.3 % (41-53); Hemoglobin 14.2 g/dL (13.5-17.5); Mean Corpuscular HGB Conc 33.5 % (30-36); Mean Corpuscular Hemoglobin 28.5 PG (26-34); Platelet Count 242 X10^3/uL (150-400); Red Blood Cell Count 4.98 X10^6/uL (4.5-5.9); Red Cell Distribution Width 14.2 % (11.6-14.8); White Blood Cell Count 8.5 X10^3/uL (4.5-11.0)
[2024-05-18 08:16] LABS: Prothrombin Time 11.6 SECONDS (9.4-12.5)
[2024-05-18 08:19] LABS: PTT Partial Thromboplastin Tim 33 SECONDS (25.1-36.5)
[2024-05-18 08:22] LABS: HEMOLYSIS < 15 (0-50); Iron 65 ug/dL (49-181)
[2024-05-18 08:27] LABS: Alanine Aminotransferase 28 IU/L (<50); Albumin 4.2 g/dL (3.5-5.0); Albumin Globulin Ratio 1.7 (1.0-2.8); Alkaline Phosphatase 68 U/L (38-126); Aspartate Aminotransferase 26 IU/L (17-59); BUN Creatinine Ratio 18.6 (6-22); Bilirubin Total 0.9 mg/dL (0.2-1.3); Blood Urea Nitrogen 19 mg/dL (9-20); Carbon Dioxide 25 mmol/L (22-32); Chloride 104 mmol/L (98-107); Cholesterol 115 mg/dL (140-199); Estimated Glomerular Filt Rate > 60 mL/min (>60); Globulin 2.5 g/dL (1.7-4.1); Glucose 129 mg/dL (70-100); HDL Cholesterol 38 mg/dL (40-60); HEMOLYSIS < 15 (0-50); LDL Cholesterol Calculated 57 mg/dL (<100); Potassium 4.4 mmol/L (3.4-5.1); Sodium 139 mmol/L (137-145); Total Protein 6.7 g/dL (6.3-8.2); Triglycerides 101 mg/dL (35-150)
[2024-05-18 08:29] LABS: Hemoglobin A1C% w Est Avg Glu 6.1 % (4.0-6.0)
[2024-05-18 08:34] LABS: Percent Iron Saturation 24 % (20-50); Total Iron Binding Capacity 268 ug/dL (261-462); Transferrin 224 mg/dL (206-381)
[2024-05-18 08:40] LABS: Free T3, Triiodothyronine Free 4.41 pg/mL (2.77-5.27)
[2024-05-18 08:54] LABS: Thyroid Stimulating Hormone 1.42 uIU/mL (0.47-4.68)
[2024-05-18 09:03] LABS: Ferritin 85 ng/mL (18-464)
[2024-05-18 09:31] LABS: Folate 8.1 ng/mL (2.76-20.0); Vitamin B12 526 pg/mL (239-931)
== END ==
PROVIDERS: PCP Internal Medicine; Referring Provider Surgery; Visit Provider Surgery
DX: Z01.812 Encounter for preprocedural laboratory examination (principal); E51.9 Thiamine deficiency, unspecified; E46 Unspecified protein-calorie malnutrition
CPT/HCPCS: 36415; 80053; 80061; 82306; 82607; 82728; 82746; 83036; 83540; 83550; 84425; 84443; 84481; 85027; 85610; 85730